=== PATIENT | female | born 1955 | race Caucasian/White ===

== ENCOUNTER 2017-06-22 05:15 | Day surgery (SDC) | payer OTHER ==
[~2017-06-22] VITALS: Ht 170.2 cm; Wt 84.3 kg
[~2017-06-22 05:15] MED LIST: ADULT ONE DAI200 MCG PO; ALEVE220 MG PO; ALKA-SELTZER O1 EACH PO; ALPRAZOLAM0.5 MG PO; ASPIR 8181 M1 PO; BENICAR20 MG PO; CALAN80 MG PO; CHLORDIAZEPOXI1 EACH PO; DIMENHYDRINATE50 MG PO; DRAMAMINE II PO; ELAVIL50 MG PO; FIBER GUMMIES1 EACH PO; FLUOXETINE HCL20 MG PO; LEVOTHROID,SYN0.2 MG PO; LEVOTHYROXINE75 MCG PO; NITROSTAT0.4 MG SL; PROMETHAZINE HC25 M1 PO; PROTONIX40 MG PO; Phenergan PO; Tylenol Regular Stre PO; VIMOVO 500-201 EAC1 PO; ZANTAC150 MG PO
[2017-06-22] MEDS ORDERED: VALSARTAN-HCTZ1 EAC2 PO (06:04)
[2017-06-22] MEDS ORDERED: TRAZODONE HCL100 MG PO (06:04)
[2017-06-22 06:10] VITALS: BP 144/84
[2017-06-22 09:10] VITALS: BP 145/96
[2017-06-22 09:33] VITALS: BP 136/74
== END 2017-06-22 09:45 | disposition home or self-care (01) ==
LOC: SDC
PROC: 0UDB8ZX Extraction of Endometrium, Via Natural or Artificial Opening Endoscopic, Diagnostic (ICD-10-PCS; principal; 2017-06-22)
DX: N95.0 Postmenopausal bleeding (principal); N81.6 Rectocele; I10 Essential (primary) hypertension; E03.9 Hypothyroidism, unspecified; K21.9 Gastro-esophageal reflux disease without esophagitis; Z79.82 Long term (current) use of aspirin; Z88.2 Allergy status to sulfonamides
CPT/HCPCS: 88305; J0690; J1100; J2250; J2405; J3010; J7643; Q0175